=== PATIENT | male | born 2000 | race Caucasian/White ===

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

== ENCOUNTER → 2021-01-05 09:04 | Outpatient (BNVA) | payer MEDICAID, SELFPAY | PROVIDERS: PCP Nurse Practitioner Family; Referring Provider Nurse Practitioner Family; Visit Provider Internal Medicine | DX: E11.69 Type 2 diabetes mellitus with other specified complication (principal); E66.9 Obesity, unspecified; E03.9 Hypothyroidism, unspecified; F84.0 Autistic disorder; Z79.4 Long term (current) use of insulin | CPT/HCPCS: 99204 ==

== ENCOUNTER 2021-01-10 10:11 | Outpatient (CLI) | payer MEDICAID, SELFPAY ==
[2021-01-10 11:52] LABS: Free T4 Free Thyroxine 1.29 ng/dL (0.93-1.60); Glucose 298 mg/dL (65-115)
[2021-01-11 08:48] LABS: C-Peptide 3.22 ng/mL (0.80-3.85)
== END 2021-01-10 10:12 | disposition home or self-care (01) ==
LOC: LAB 10:19
PROVIDERS: PCP Nurse Practitioner Family; Visit Provider Internal Medicine
DX: E03.9 Hypothyroidism, unspecified (principal); E11.69 Type 2 diabetes mellitus with other specified complication; E66.9 Obesity, unspecified; F84.0 Autistic disorder
CPT/HCPCS: 36415; 82947; 83519; 83525; 84439; 84443; 84681; 86337

== ENCOUNTER → 2021-04-23 08:26 | Outpatient (BNVA) | payer MEDICAID, SELFPAY | PROVIDERS: PCP Nurse Practitioner Family; Visit Provider Internal Medicine | DX: E11.69 Type 2 diabetes mellitus with other specified complication (principal); E66.9 Obesity, unspecified; E03.9 Hypothyroidism, unspecified; F84.0 Autistic disorder; Z79.4 Long term (current) use of insulin | CPT/HCPCS: 99214 ==

== ENCOUNTER → 2021-05-02 10:49 | Outpatient (BNVA) | payer MEDICAID, SELFPAY | PROVIDERS: PCP Nurse Practitioner Family; Visit Provider Internal Medicine | DX: R76.8 Other specified abnormal immunological findings in serum (principal); M25.50 Pain in unspecified joint; M54.50 Low back pain, unspecified; L30.9 Dermatitis, unspecified; Z11.59 Encounter for screening for other viral diseases; F84.0 Autistic disorder; E11.9 Type 2 diabetes mellitus without complications; Z79.4 Long term (current) use of insulin; E66.9 Obesity, unspecified; F32.A Depression, unspecified; Z82.61 Family history of arthritis | CPT/HCPCS: 99204 ==

== ENCOUNTER 2021-05-17 09:42 | Outpatient (CLI) | payer MEDICAID, SELFPAY ==
[2021-05-17 10:28] LABS: Erythrocyte Sedimentation Rate 52 mm/hr (0-10)
[2021-05-17 11:04] LABS: Hepatitis B Core AB, Total Non-Reactive (Nonreactive); Hepatitis B Surface Antigen Non-Reactive (Nonreactive); Hepatitis C Virus Antibody Non-Reactive (Nonreactive)
[2021-05-17 12:20] LABS: C Reactive Protein 23.7 mg/L (0.0-4.9)
[2021-05-18 11:17] LABS: COMPLEMENT COMPONENT C3C 199 mg/dL (82-185); COMPLEMENT COMPONENT C4C 60 mg/dL (15-53)
[2021-05-18 12:52] LABS: Cyclic Citrullinated Peptide <16 UNITS
[2021-05-18 13:22] LABS: COMPLEMENT, TOTAL (CH50) >60 U/mL (31-60)
[2021-05-18 16:38] LABS: THYROID PEROXIDASE ANTIBODIES 1 IU/mL (<9)
[2021-05-21 11:13] LABS: CENTROMERE B ANTIBODY <1.0 NEG AI (<1.0 NEG); JO-1 ANTIBODY <1.0 NEG AI (<1.0 NEG); RNP ANTIBODY <1.0 NEG AI (<1.0 NEG); SCL-70 ANTIBODY <1.0 NEG AI (<1.0 NEG); SJOGREN'S ANTIBODY (SS-A) <1.0 NEG AI (<1.0 NEG); SM ANTIBODY <1.0 NEG AI (<1.0 NEG); SS-B <1.0 NEG AI (<1.0 NEG)
[2021-05-21 15:46] LABS: ANA SCREEN, IFA NEGATIVE (NEGATIVE)
[2021-05-25 15:57] LABS: DNA AB (DS) CRITHIDIA,IFA NEGATIVE (NEGATIVE)
== END 2021-05-17 09:43 | disposition home or self-care (01) ==
PROVIDERS: PCP Nurse Practitioner Family; Visit Provider Internal Medicine
DX: E03.9 Hypothyroidism, unspecified (principal); E11.69 Type 2 diabetes mellitus with other specified complication; E66.9 Obesity, unspecified; F84.0 Autistic disorder; M25.50 Pain in unspecified joint; R21 Rash and other nonspecific skin eruption; R76.8 Other specified abnormal immunological findings in serum
CPT/HCPCS: 36415; 83516; 85651; 86140; 86160; 86162; 86200; 86235; 86255; 86376; 86431; 86704; 86803; 87340

== ENCOUNTER → 2021-06-14 12:20 | Outpatient (BNVA) | payer MEDICAID, SELFPAY | PROVIDERS: PCP Nurse Practitioner Family; Visit Provider Internal Medicine | DX: R76.8 Other specified abnormal immunological findings in serum (principal); M25.50 Pain in unspecified joint; E03.9 Hypothyroidism, unspecified; R21 Rash and other nonspecific skin eruption | CPT/HCPCS: 99214 ==

== ENCOUNTER → 2021-07-18 08:20 | Outpatient (BNVA) | payer MEDICAID, SELFPAY | PROVIDERS: PCP Nurse Practitioner Family; Visit Provider Internal Medicine | DX: E11.69 Type 2 diabetes mellitus with other specified complication (principal); E03.9 Hypothyroidism, unspecified; F84.0 Autistic disorder; E66.9 Obesity, unspecified; Z79.4 Long term (current) use of insulin; Z68.41 Body mass index [BMI] 40.0-44.9, adult | CPT/HCPCS: 99214 ==

== ENCOUNTER 2021-09-17 11:30 | Outpatient (CLI) | payer MEDICAID, SELFPAY ==
[2021-09-17 12:35] LABS: Basophils % 0.3 %; Eosinophils # 0.1 10^3/uL (0.0-0.8); Eosinophils % 1.5 %; Hematocrit 47.2 % (42.0-52.0); Hemoglobin 15.7 g/dL (11.7-16.6); Lymphocytes # 2.6 10^3/uL (1.5-6.5); Lymphocytes % 27.6 %; Mean Corpuscular HGB Conc 33.3 g/dL (30.0-36.0); Mean Corpuscular Hemoglobin 27.3 pg (28.0-34.0); Mean Corpuscular Volume 81.9 fl (80-94); Mean Platelet Volume 11.6 fL (7.4-10.4); Monocytes # 0.6 10^3/uL (0.2-0.9); Neutrophils % 64.4 %; Nucleated Red Blood Cells % 0 %; Platelet Count 224 10^3/cmm (130-400); Red Blood Count 5.76 10^6/uL (4.1-5.3); White Blood Count 9.5 10^3/uL (4.5-13.0)
[2021-09-17 12:41] LABS: Estmated Average Glucose 352; Hemoglobin A1C 13.9 % (4.0-6.0)
[2021-09-17 12:49] LABS: Erythrocyte Sedimentation Rate 10 mm/hr (0-10)
[2021-09-17 13:04] LABS: Alanine Aminotransferase 31 U/L (0-41); Albumin Level 4.2 g/dL (3.5-5.2); Alkaline Phosphatase 112 IU/L (40-130); Anion Gap 16.5 (5-19); Aspartate Amino Transferase 17 U/L (0-40); Blood Urea Nitrogen 12 mg/dL (6-20); C Reactive Protein 20.6 mg/L (0.0-4.9); Calcium 9.4 mg/dL (8.5-10.5); Carbon Dioxide 25 mmol/L (22-29); Chloride 98 mmol/L (98-107); Chol HDL Ratio 4.62 mg/dL (1.0-5.00); Cholesterol 194 mg/dL (0-200); Glomerular Filtration Rate 171.8 mL/min (90-130); Glucose 406 mg/dL (65-115); HDL Cholesterol 42 mg/dL (60-100); LDL Cholesterol Calculated 109 mg/dL (50-129); Osmolality Calculated 297 mOsm/kg (285-295); Potassium 4.5 mmol/L (3.5-5.1); Sodium 135 mmol/L (136-145); Thyroid Stimulating Hormone 2.06 uIU/mL (0.27-4.20); Total Bilirubin 0.2 mg/dL (0.15-1.2); Total Protein 7.2 g/dL (6.6-8.7); Triglycerides 216 mg/dL (0-150)
[2021-09-17 13:05] LABS: Free T4 Free Thyroxine 1.11 ng/dL (0.82-1.77)
[2021-09-17 13:20] LABS: Complement C3 188 mg/dL (90-180)
[2021-09-17 13:55] LABS: Add Urine Microscopic? NO; Charge for UA Resulting for Rev
[2021-09-17 15:17] LABS: Blood Urine Neg (Negative); Glucose Urine UA 4+ (Normal); Ketones Urine Negative (Negative); Protein Urine Neg (Negative); Specific Gravity, Urine 1.015 (1.005-1.030); Urine Appearance Clear (CLEAR); Urine Color Yellow (Yellow); pH Urine 5 (5-7)
[2021-09-17 15:18] LABS: Bilirubin Urine Neg (Negative); Leukocyte Esterase Urine Negative (Negative); Nitrate Urine Negative (Negative); Urobilinogen Urine Norm (Negative)
== END 2021-09-17 11:31 | disposition home or self-care (01) ==
PROVIDERS: PCP Nurse Practitioner Family; Referring Provider Internal Medicine; Visit Provider Internal Medicine
DX: M25.50 Pain in unspecified joint (principal); Z68.41 Body mass index [BMI] 40.0-44.9, adult; Z79.4 Long term (current) use of insulin; R76.8 Other specified abnormal immunological findings in serum; E11.69 Type 2 diabetes mellitus with other specified complication; E66.9 Obesity, unspecified
CPT/HCPCS: 36415; 80053; 80061; 81003; 83036; 84439; 84443; 85025; 85651; 86140; 86160; 99213; 99214

== ENCOUNTER → 2021-10-23 08:27 | Outpatient (BNVA) | payer MEDICAID, SELFPAY | PROVIDERS: PCP Nurse Practitioner Family; Visit Provider Internal Medicine | DX: E11.69 Type 2 diabetes mellitus with other specified complication (principal); E66.9 Obesity, unspecified; E03.9 Hypothyroidism, unspecified; F84.0 Autistic disorder; Z79.4 Long term (current) use of insulin; Z68.41 Body mass index [BMI] 40.0-44.9, adult | CPT/HCPCS: 99214 ==

== ENCOUNTER → 2022-01-22 08:23 | Outpatient (BNVA) | payer MEDICAID, SELFPAY | PROVIDERS: PCP Family Medicine; Visit Provider Internal Medicine | DX: E11.69 Type 2 diabetes mellitus with other specified complication (principal); E03.9 Hypothyroidism, unspecified; E66.9 Obesity, unspecified; F84.0 Autistic disorder; Z68.41 Body mass index [BMI] 40.0-44.9, adult; Z79.4 Long term (current) use of insulin | CPT/HCPCS: 99214 ==

== ENCOUNTER 2022-04-12 07:58 | Outpatient (CLI) | payer MEDICAID, SELFPAY ==
[2022-04-12 09:12] LABS: Alanine Aminotransferase 28 U/L (0-41); Albumin Level 3.8 g/dL (3.5-5.2); Alkaline Phosphatase 95 U/L (40-130); Anion Gap 13.9 (5-19); Aspartate Amino Transferase 16 U/L (0-40); Blood Urea Nitrogen 10 mg/dL (6-20); C Reactive Protein 13.5 mg/L (0.0-4.9); Calcium 8.6 mg/dL (8.5-10.5); Carbon Dioxide 25 mmol/L (22-29); Chloride 99 mmol/L (98-107); Chol HDL Ratio 4.34 mg/dL (1.0-5.00); Cholesterol 178 mg/dL (0-200); Globulin 3.1 g/dL (1.3-4.6); Glomerular Filtration Rate 171.8 mL/min (90-130); Glucose 427 mg/dL (65-115); HDL Cholesterol 41 mg/dL (60-100); LDL Cholesterol Calculated 70 mg/dL (50-129); LDL HDL Ratio 1.71 RATIO (0.00-3.22); Osmolality Calculated 295 mOsm/kg (285-295); Potassium 3.9 mmol/L (3.5-5.1); Sodium 134 mmol/L (136-145); Total Bilirubin 0.2 mg/dL (0.15-1.2); Total Protein 6.9 g/dL (6.6-8.7); Triglycerides 336 mg/dL (0-150)
[2022-04-12 09:49] LABS: Estmated Average Glucose 346; Hemoglobin A1C 13.7 % (4.0-6.0)
[2022-04-16 18:28] LABS: Erythrocyte Sedimentation Rate 9 mm/hr (0-10)
== END 2022-04-12 07:59 | disposition home or self-care (01) ==
LOC: LAB 08:03
PROVIDERS: PCP Family Medicine; Referring Provider Internal Medicine; Visit Provider Internal Medicine
DX: R76.8 Other specified abnormal immunological findings in serum (principal); R21 Rash and other nonspecific skin eruption; M25.50 Pain in unspecified joint; E03.9 Hypothyroidism, unspecified; E11.69 Type 2 diabetes mellitus with other specified complication; E66.9 Obesity, unspecified
CPT/HCPCS: 36415; 80053; 80061; 83036; 85651; 86140

== ENCOUNTER → 2022-05-23 13:55 | Outpatient (BNVA) | payer MEDICAID, SELFPAY | PROVIDERS: PCP Family Medicine; Visit Provider Internal Medicine | DX: E11.69 Type 2 diabetes mellitus with other specified complication (principal); E66.9 Obesity, unspecified; E03.9 Hypothyroidism, unspecified; F84.0 Autistic disorder; Z79.890 Hormone replacement therapy; Z79.4 Long term (current) use of insulin; Z68.41 Body mass index [BMI] 40.0-44.9, adult | CPT/HCPCS: 99214 ==

== ENCOUNTER 2022-06-19 07:15 | Outpatient (CLI) | payer MEDICAID, SELFPAY ==
[2022-06-19 08:11] LABS: Basophils % 0.4 %; Eosinophils # 0.1 10^3/uL (0.0-0.8); Eosinophils % 1.9 %; Hematocrit 49.3 % (42.0-52.0); Lymphocytes % 26.9 %; Mean Corpuscular HGB Conc 32.5 g/dL (30.0-36.0); Mean Corpuscular Hemoglobin 27.6 pg (28.0-34.0); Mean Platelet Volume 11.5 fL (7.4-10.4); Monocytes # 0.5 10^3/uL (0.2-0.9); Monocytes % 6.2 %; Neutrophils # 4.75 10^3/uL (1.8-7.7); Neutrophils % 64.3 %; Nucleated Red Blood Cells % 0 %; Platelet Count 214 10^3/cmm (130-400); Red Cell Distribution Width 13.1 % (12.1-15.1); White Blood Count 7.4 10^3/uL (4.0-10.0)
[2022-06-19 08:33] LABS: Erythrocyte Sedimentation Rate 41 mm/hr (0-10)
[2022-06-19 08:45] LABS: Estmated Average Glucose 289; Hemoglobin A1C 11.7 % (4.0-6.0)
[2022-06-19 08:53] LABS: Alanine Aminotransferase 25 U/L (0-41); Albumin Level 3.7 g/dL (3.5-5.2); Alkaline Phosphatase 86 U/L (40-130); Anion Gap 20.2 (5-19); Aspartate Amino Transferase 16 U/L (0-40); Blood Urea Nitrogen 14 mg/dL (6-20); C Reactive Protein 19.6 mg/L (0.0-4.9); Calcium 8.9 mg/dL (8.5-10.5); Carbon Dioxide 21 mmol/L (22-29); Chloride 99 mmol/L (98-107); Chol HDL Ratio 5.38 mg/dL (1.0-5.00); Cholesterol 215 mg/dL (0-200); Free T4 Free Thyroxine 1.05 ng/dL (0.82-1.77); Globulin 2.9 g/dL (1.3-4.6); Glomerular Filtration Rate 142.4 mL/min (90-130); Glucose 456 mg/dL (65-115); HDL Cholesterol 40 mg/dL (60-100); LDL Cholesterol Calculated 120 mg/dL (50-129); Osmolality Calculated 302 mOsm/kg (285-295); Potassium 4.2 mmol/L (3.5-5.1); Sodium 136 mmol/L (136-145); Thyroid Stimulating Hormone 1.83 uIU/mL (0.27-4.20); Total Bilirubin 0.3 mg/dL (0.15-1.2); Total Protein 6.6 g/dL (6.6-8.7); Triglycerides 276 mg/dL (0-150)
== END 2022-06-19 07:16 | disposition home or self-care (01) ==
PROVIDERS: PCP Family Medicine; Referring Provider Internal Medicine; Visit Provider Internal Medicine
DX: R76.8 Other specified abnormal immunological findings in serum (principal); M25.50 Pain in unspecified joint; E03.9 Hypothyroidism, unspecified; E66.9 Obesity, unspecified; E11.69 Type 2 diabetes mellitus with other specified complication
CPT/HCPCS: 36415; 80053; 80061; 83036; 84439; 84443; 85025; 85651; 86140

== ENCOUNTER → 2022-06-25 08:57 | Outpatient (BNVA) | payer MEDICAID, SELFPAY | PROVIDERS: PCP Family Medicine; Visit Provider Internal Medicine | DX: R76.8 Other specified abnormal immunological findings in serum (principal); M25.50 Pain in unspecified joint; E11.69 Type 2 diabetes mellitus with other specified complication; E66.9 Obesity, unspecified; Z79.4 Long term (current) use of insulin | CPT/HCPCS: 99213 ==

== ENCOUNTER 2022-12-17 09:48 | Outpatient (CLI) | payer MEDICAID, SELFPAY ==
--- NOTE | 2022-12-17 09:57 | XR_ITS ---
WS: [id number] Exam: XR lumbar spine 2-3V* [id number] Date/Time of Exam: 12/17/2022 10:13 AM Reason For Exam: R76.8 - Other specified abnormal immunological findings i... No fracture or dislocation noted. Narrowing of the L5-S1 disc. 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 Mild levoscoliosis that may be positional. IMPRESSION: 1. No fracture or malalignment. 2. Mild levoscoliosis. Additional nonemergent findings as detailed above.
[2022-12-17 10:32] LABS: Basophils % 0.4 %; Eosinophils # 0.2 10^3/uL (0.0-0.8); Eosinophils % 1.8 %; Lymphocytes # 2.2 10^3/uL (0.8-4.8); Lymphocytes % 26.6 %; Mean Corpuscular HGB Conc 32.3 g/dL (30-55); Mean Corpuscular Hemoglobin 27.4 pg (27-33); Monocytes # 0.5 10^3/uL (0.2-0.9); Monocytes % 6.4 %; Neutrophils # 5.22 10^3/uL (1.8-7.7); Neutrophils % 64.4 %; Nucleated Red Blood Cells % 0 %; Platelet Count 211 10^3/cmm (157-399); Red Blood Count 5.65 10^6/uL (3.85-5.65); Red Cell Distribution Width 12.4 % (12.1-15.1); White Blood Count 8.11 10^3/uL (3.29-11.43)
[2022-12-17 10:43] LABS: Estmated Average Glucose 295; Hemoglobin A1C 11.9 % (4.0-6.0)
[2022-12-17 10:49] LABS: Alanine Aminotransferase 32 U/L (0-41); Albumin Level 4.2 g/dL (3.5-5.2); Alkaline Phosphatase 104 U/L (40-130); Blood Urea Nitrogen 15 mg/dL (6-20); C Reactive Protein 20.1 mg/L (0.0-4.9); Calcium 9.2 mg/dL (8.5-10.5); Carbon Dioxide 22 mmol/L (22-29); Chloride 97 mmol/L (98-107); Glomerular Filtration Rate 142.4 mL/min (90-130); Osmolality Calculated 296 mOsm/kg (285-295); Sodium 131 mmol/L (136-145); Total Bilirubin 0.3 mg/dL (0.15-1.2); Total Protein 7.2 g/dL (6.6-8.7)
[2022-12-17 10:52] LABS: Anion Gap 16.4 (5-19); Aspartate Amino Transferase 22 U/L (0-40); Potassium 4.4 mmol/L (3.5-5.1)
[2022-12-17 10:54] LABS: Glucose 515 mg/dL (65-115)
[2022-12-17 11:02] LABS: Erythrocyte Sedimentation Rate 43 mm/hr (0-10)
== END 2022-12-17 09:49 | disposition home or self-care (01) ==
LOC: LAB 09:53
PROVIDERS: Internal Medicine; PCP Family Medicine; Visit Provider Internal Medicine
DX: R76.8 Other specified abnormal immunological findings in serum (principal); Z79.899 Other long term (current) drug therapy; M25.50 Pain in unspecified joint; E11.69 Type 2 diabetes mellitus with other specified complication; E66.9 Obesity, unspecified
CPT/HCPCS: 36415; 72100; 80053; 83036; 85025; 85651; 86140; 99214

== ENCOUNTER → 2023-01-08 08:07 | Outpatient (BNVA) | payer MEDICAID, SELFPAY | PROVIDERS: PCP Family Medicine; Visit Provider Internal Medicine | DX: F84.0 Autistic disorder (principal); E11.69 Type 2 diabetes mellitus with other specified complication; E66.9 Obesity, unspecified; E03.9 Hypothyroidism, unspecified; Z68.41 Body mass index [BMI] 40.0-44.9, adult; Z79.4 Long term (current) use of insulin; Z79.890 Hormone replacement therapy | CPT/HCPCS: 99214 ==